=== PATIENT | female | born 2000 | race Caucasian/White ===

== ENCOUNTER 2023-06-29 09:30 | Outpatient (RCR) | payer BC, OTHER, SELFPAY ==
[2023-06-29 10:28] VITALS: BMI 46.9
[2023-06-29 10:30] VITALS: BMI 46.9
== END 2023-08-28 09:50 | disposition home or self-care (01) ==
LOC: ANHDMC 09:30
PROVIDERS: Visit Provider Obstetrics & Gynecology
DX: O24.419 Gestational diabetes mellitus in pregnancy, unspecified control (principal); Z3A.00 Weeks of gestation of pregnancy not specified; Z71.89 Other specified counseling; Z71.3 Dietary counseling and surveillance
CPT/HCPCS: 97802; G0108

== ENCOUNTER 2023-06-30 15:31 | Outpatient (CLI) | payer BC, SELFPAY ==
--- NOTE | ~2023-06-30 | US_ITS ---
EXAMINATION: US OB follow up DATE: 06/30/2023 16:50 INDICATION: growth assessment, cervical length measurement, third trimester TECHNIQUE: Real-time ultrasound of the pelvis was performed. The interpreting radiologist was not pre sent for the study. COMPARISON: None. FINDINGS: There is a single living fetus in vertex presentation. The placenta is posterior. The cervi brit length is 4.7 cm. cardiac activity and movement are noted. heart rate is 133 be ats per minute (bpm). The amniotic fluid index is subjectively normal. The following biometric data were obtained: Biparietal diameter (BPD): 8.8 cm; head circumference (HC): 31.7 cm; abdominal circumference (AC): 31 .0 cm; femur length (FL): 6.7 cm. These measurements are concordant. Estimated weight is 2549 g +/- 382 g, which correlates with the 52nd percentile when 08/06/2023 is used as estimated date of delivery. As single measurements, these parameters are each equal to the following estimated gestational ages w ith ranges of +/- 2 standard deviations: BPD: 35 weeks 4 days +/- 3 weeks 1 days. HC: 35 weeks 4 days +/- 3 weeks 0 days. AC: 34 weeks 6 days +/- 3 weeks 0 days. FL: 34 weeks 3 days +/- 3 weeks 0 days. estimated gestational age based solely on measurements from this exam is 35 weeks 1 days +/- 2 weeks 3 days. IMPRESSION: 1. Single living fetus in vertex presentation. 2. Cervical length is 4.7 cm. 3. Estimated weight is 2549 g +/- 382 g, which correlates with the 52nd percentile when 08/06/19 24 is used as estimated date of delivery. Reviewed, dictated and finalized at location F. TECHNICIAN IMPRESSION: 1. Single living fetus in vertex presentation. 2. Cervical length is 4.7 cm. 3. Estimated weight is 2549 g +/- 382 g, which correlates with the 52nd p ercentile when 08/06/2023 is used as estimated date of delivery.
== END 2023-06-30 15:32 | disposition home or self-care (01) ==
LOC: ANHIMG 15:33
PROVIDERS: Visit Provider Student in an Organized Health Care Education/Training Program
DX: O24.419 Gestational diabetes mellitus in pregnancy, unspecified control (principal); Z3A.00 Weeks of gestation of pregnancy not specified
CPT/HCPCS: 76816

== ENCOUNTER 2023-07-18 09:35 | Outpatient (CLI) | payer BC, OTHER, SELFPAY ==
[2023-07-18] VITALS (7 sets, daily range): BP systolic 93–121; BP diastolic 52–80; PULSE 84–97
[2023-07-18 10:25] LABS: Basophils Percent Auto 0.3 % (0.2-1.2); Eosinophils Absolute Auto 0.1 K/mm3 (0-0.3); Eosinophils Percent Auto 0.9 % (0-4.4); Hemoglobin 11.1 g/dL (12.0-15.0); Immature Granulocyte Absolute 0.05 K/mm3 (0.00-0.031); Immature Granulocyte Percent A 0.5 % (0-0.5); Lymphocytes Absolute Auto 1.74 K/mm3 (0.9-3.2); Lymphocytes Percent Auto 16.2 % (18.3-44.2); Mean Corpuscular HGB Conc 31.7 g/dl (32-36); Mean Corpuscular Hemoglobin 26.2 pg (26-34); Mean Corpuscular Volume 82.7 fl (80-100); Mean Platelet Volume 8.6 fl (7.4-10.4); Monocytes Absolute Auto 0.7 K/mm3 (0.1-0.6); Monocytes Percent Auto 6.1 % (2.6-8.5); Neutrophils Absolute Auto 8.2 K/mm3 (1.3-6.7); Platelet Count Result 322 k/mm3 (150-375); Red Blood Count 4.23 M/mm3 (4.2-5.4); Red Cell Distribution Width 14.6 % (11.5-14.5); White Blood Count 10.8 K/mm3 (4.5-10.0)
[2023-07-18 10:29] LABS: Appearance Urine Cloudy (Clear); Bacteria Urine 4+ /hpf; Bilirubin Urine Negative (Negative); Blood Urine Negative (Negative); Color Urine Yellow (Yellow); Glucose Urine UA Negative (Negative); Ketones Urine Negative (Negative); Leukocyte Esterase Ur 3+ LEU/UL (Negative); Nitrate Urine Negative (Negative); Non Pathogenic Casts 0-2; Protein Urine Negative (Negative); RBC Urine 0-2 /hpf (0-2); Specific Grav Ur 1.005 (1.001-1.035); Squamous Epithelial Cell Urine Occasional /hpf (Few); Urobilinogen Urine 0.2 mg/dL (<2.0); WBC Urine 21-50 /hpf; pH Urine 7.5 (5.0-9.0)
[2023-07-18 10:31] LABS: Add Urine Microscopic? YES
[2023-07-18 10:38] LABS: Alanine Aminotransferase 10 U/L (6-35); Albumin Level 3.7 g/dL (3.5-5.1); Alkaline Phosphatase 111 U/L (38-126); Anion Gap 7 mmol/L (8-16); Aspartate Amino Transferase 14 U/L (14-36); Bilirubin,Total 0.6 mg/dL (0.2-1.3); Blood Urea Nitrogen 7 mg/dL (7-17); Calcium 9.4 mg/dL (8.4-10.2); Carbon Dioxide 24 mmol/L (22-30); Chloride 105 mmol/L (98-107); Estimated Glomerular Filt Rate > 60; Glucose 84 mg/dL (65-110); Potassium 4.1 mmol/L (3.4-5.0); Sodium 136 mmol/L (137-145); Uric Acid 3.2 mg/dL (2.5-7.5)
[2023-07-18 11:13] LABS: Creatinine Urine 17.3 mg/dL; Total Protein Urine Random 18 mg/dL; Ur Ttl Prot Creatinine Ratio 1.04 mg/mg (0-0.20)
--- NOTE | 2023-07-18 11:21 | PC.NURSE ---
Dr Bradley notified of lab resutls and BP's. Ok to dc home, RX to be called by MD for potential UTI.
== END 2023-07-18 11:25 | disposition home or self-care (01) ==
LOC: ANHOBOP 09:39 → ANHOBPP 09:39
PROVIDERS: Visit Provider Student in an Organized Health Care Education/Training Program
DX: O13.9 Gestational [pregnancy-induced] hypertension without significant proteinuria, unspecified trimester (principal)
CPT/HCPCS: 36415; 59025; 80053; 81001; 82570; 84156; 84550; 85025; 87086; 99199

== ENCOUNTER 2023-07-26 09:42 | Outpatient (RCR) | payer BC, OTHER, SELFPAY ==
[2023-06-21 10:45] VITALS: BP 105/60; PULSE 90
[2023-06-29 10:58] VITALS: BP 116/63; PULSE 86
[2023-07-05 10:20] VITALS: BP 120/66; PULSE 97
[2023-07-12 12:58] VITALS: BP 122/77; PULSE 86
[2023-07-26 10:07] VITALS: BP 111/70; PULSE 90
== END 2023-09-19 23:59 | disposition home or self-care (01) ==
LOC: ANHOBOP 09:42
PROVIDERS: Visit Provider Student in an Organized Health Care Education/Training Program
DX: O24.419 Gestational diabetes mellitus in pregnancy, unspecified control (principal); Z3A.33 33 weeks gestation of pregnancy; Z3A.34 34 weeks gestation of pregnancy; Z3A.35 35 weeks gestation of pregnancy; Z3A.36 36 weeks gestation of pregnancy; Z3A.38 38 weeks gestation of pregnancy
CPT/HCPCS: 59025

== ENCOUNTER 2023-07-30 16:55 | Inpatient (IN) | payer BC, OTHER, SELFPAY ==
[2023-07-30] VITALS (11 sets, daily range): BP systolic 114–142; BP diastolic 61–83; PULSE 84–97; TEMP 36.7; BMI 46.5
--- NOTE | 2023-07-30 16:55 | LDADM ---
This patient, Patricia Bridges, was admitted to Labor/Delivery/Recovery 108 on 07/30/23 at 16:55. Plans for labor, pain management and were discussed with patient. Patient/family oriented to hospital policies and general routines including ID bracelet, bed and alarms, visiting hours, pain management, procedures, bathroom and other care routines, personal items, smoking policy, room service/diet and guest tray routines, security routines, and visiting hours. Patient/Family are encouraged to report perceived risks to care and to ask questions if they do not understand what they are told or what they should do. See OBIX for further documentation.
[2023-07-30 17:47] LABS: Glucose Point of Care 89 mg/dl (65-105)
[2023-07-30 17:54] LABS: Basophils Percent Auto 0.2 % (0.2-1.2); Eosinophils Absolute Auto 0.1 K/mm3 (0-0.3); Eosinophils Percent Auto 0.8 % (0-4.4); Hematocrit 34.8 % (37.0-47.0); Hemoglobin 10.7 g/dL (12.0-15.0); Immature Granulocyte Absolute 0.05 K/mm3 (0.00-0.031); Immature Granulocyte Percent A 0.4 % (0-0.5); Lymphocytes Absolute Auto 1.98 K/mm3 (0.9-3.2); Lymphocytes Percent Auto 15.5 % (18.3-44.2); Mean Corpuscular HGB Conc 30.7 g/dl (32-36); Mean Corpuscular Hemoglobin 25.5 pg (26-34); Mean Corpuscular Volume 83.1 fl (80-100); Mean Platelet Volume 8.7 fl (7.4-10.4); Monocytes Absolute Auto 0.7 K/mm3 (0.1-0.6); Monocytes Percent Auto 5.6 % (2.6-8.5); Neutrophils Absolute Auto 9.9 K/mm3 (1.3-6.7); Neutrophils Percent Auto 77.5 % (45.5-73.1); Platelet Count Result 300 k/mm3 (150-375); Red Blood Count 4.19 M/mm3 (4.2-5.4); Red Cell Distribution Width 14.6 % (11.5-14.5); White Blood Count 12.8 K/mm3 (4.5-10.0)
[2023-07-30] MEDS: DINOPROSTONE 10 MG VAG INSERT VAGINAL (17:56)
--- NOTE | 2023-07-30 18:28 | WPDANESEPP ---
Anes - Eval Pre Procedure Procedure: labor epidural Date/Time: 07/30/23 18:28 Pre Op Diagnosis: IOL Patient Data Age: 23 Gender: F Height: 1.65 m Weight: 127 kg Last Vital Signs Temp 36.7 C 07/30/23 17:45 Pulse 89 07/30/23 18:17 BP 122/68 07/30/23 18:17 Allergies Allergy/AdvReac Type Severity Reaction Status Date / Time No Known Allergies Allergy Verified 07/26/23 08:50 Home Medications Medication Instructions Recorded Confirmed Type aspirin 81 mg tablet,delayed 81 mg PO DAILY 03/29/23 07/26/23 History release (Adult Low Dose Aspirin) vits no.126-ferrous fum 1 tablet PO DAILY 03/29/23 07/26/23 History 28 mg iron-folic acid 800 mcg tablet (Classic ) Laboratory Tests 07/30/23 07/30/23 17:17 17:43 WBC 12.8 H K/mm3 (4.5-10.0) RBC 4.19 L M/mm3 (4.2-5.4) Hgb 10.7 L g/dL (12.0-15.0) Hct 34.8 L % (37.0-47.0) MCV 83.1 fl (80-100) MCH 25.5 L pg (26-34) MCHC 30.7 L g/dl (32-36) RDW 14.6 H % (11.5-14.5) Plt Count 300 k/mm3 (150-375) MPV 8.7 fl (7.4-10.4) Immature Gran % (Auto) 0.4 % (0-0.5) Neut % (Auto) 77.5 H % (45.5-73.1) Lymph % (Auto) 15.5 L % (18.3-44.2) [place] % (Auto) 5.6 % (2.6-8.5) Eos % (Auto) 0.8 % (0-4.4) Baso % (Auto) 0.2 % (0.2-1.2) Lymph # (Auto) 1.98 K/mm3 (0.9-3.2) [place] # (Auto) 0.7 H K/mm3 (0.1-0.6) Eos # (Auto) 0.1 K/mm3 (0-0.3) Baso # (Auto) 0.0 K/mm3 (0.0-0.1) Abs Immat Gran (auto) 0.05 H K/mm3 (0.00-0.031) Absolute Neuts (auto) 9.9 H K/mm3 (1.3-6.7) Absolute Nucleated RBC 0.0 K/mm3 (0.0-0.012) Nucleated RBC % 0.0 % (0.0-0.2) POC Capillary Glucose 89 mg/dl (65-105) RPR Pending Patient hx anesthesia problems: none Family hx anesthesia problems: none Results Review: All pre-operative results and documents have been reviewed as part of the pre-operative evaluation. [facility] Past Medical History Medical History (Updated 07/30/23 @ 18:28 by Natty Benoit CRNA) GDM (gestational diabetes mellitus), class A1 UTI (urinary tract infection) Vaginal discharge Surgical History Surgical History [place] teeth removed Family History Family History Mother Breast cancer Endometriosis Grandparent Bipolar 1 disorder Endometriosis Sibling Autism Social History Social History Smoking status: Never smoker Second hand tobacco smoke exposure: No Alcohol intake: former Substance use: never Substance use type: does not use Do You Feel Safe in your Home?: Yes Lack of Transportation: No Lack of Food: Never True Current Housing: I Have Housing Concerned About Future Housing: No Difficulty Paying Gas/Electric Bills: No Difficulty Paying for Meds: No Currently Unemployed: No Education: Bachelor's Degree Difficulty w/ Childcare or Family Care: No Living arrangements: other Additional living arrangements comments: Occupation/Education: occupation 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
[2023-07-30 21:50] LABS: Glucose Point of Care 127 mg/dl (65-105)
[2023-07-31] VITALS (167 sets, daily range): BP systolic 68–163; BP diastolic 20–112; PULSE 61–155; RESP 16–20; TEMP 36.2–36.9; O2SAT 72–100
[2023-07-31 01:06] LABS: Glucose Point of Care 99 mg/dl (65-105)
[2023-07-31 05:22] LABS: Glucose Point of Care 75 mg/dl (65-105)
[2023-07-31] MEDS: OXYTOCIN 30 UNITS/NS 500 ML 30 UNITS/500 ML BAG IV CONT (06:41)
[2023-07-31] MEDS: LACTATED RINGERS 1,000 ML 125 ML IV CONT ×2 (06:41→14:38)
--- NOTE | 2023-07-31 08:29 | WPDHPUPDATE1 ---
History and Physical Update Update Date/Time: 07/31/23 08:29 Old G1 at 39 weeks who presents for induction of labor. Patient's was complicated by gestational diabetes. Patient's blood sugars were controlled with diet and exercise. History and Physical has been reviewed, including an updated exam of the patient. There are NO changes in the patient's condition. Risks, benefits, and alternatives have been discussed and questions answered. Patient agrees to proceed with procedure. A/P Admit to L&D Routine admission orders Will plan for Cervidil induction of labor Will monitor blood sugars Throughout induction Continuous external monitoring
[2023-07-31 10:42] LABS: Rapid Plasma Reagin Non-Reactive (NonReactive)
[2023-07-31 10:42] LABS: Glucose Point of Care 128 mg/dl (65-105)
[2023-07-31 13:34] LABS: Glucose Point of Care 113 mg/dl (65-105)
[2023-07-31 18:00] LABS: Glucose Point of Care 80 mg/dl (65-105)
[2023-07-31] MEDS: OXYTOCIN 30 UNITS/NS 500 ML 30 UNITS/500 ML BAG 999 UNITS IV CONT (21:43)
--- NOTE | 2023-07-31 22:06 | PM.OBPRVD ---
OB - Vaginal Delivery Note Procedure Delivery date: 07/31/23 Events: Gestational Diabetes Induction method: Per Cervidil Protocol Delivery augmentation: Rupture of Membranes and Pitocin Delivery monitor: External FHT and External Uterine Route of delivery: Episiotomy description: None Laceration Description: Perineal - 2nd Degree Delivery repair: vicryl Specimen: No Quantitative Blood Loss (ml): 200 Anesthesia type: Epidural Disposition: Floor Complications: No immediate complications Narrative: Patient pushed for a spontaneous vaginal delivery. The fetus was delivered atraumatically and placed on the maternal abdomen. The cord was clamped and cut after 1 minute of life. The cord was double clamped and cut and a segment of cord was collected for cord gases. Cord blood was collected for blood type and Coomb's testing. The placenta delivered spontaneously and was noted to be intact. The perineum was inspected and a second degree laceration was noted. The laceration was repaired with 3-0 vicryl in the usual running fashion. The uterus was firm and good hemostasis was noted. Baby Date of : 07/31/23 Time of : 21:52 Weeks of gestation at delivery: 39 gender: Female presentation: vertex position: Right Occiput Anterior Placenta delivery description: Spontaneous Cord Vessel Description: 3 Vessels score one minute: 9 score five minutes: 9 AMG Delivery Billing Delivery Delivery: Delivery Charge
[2023-07-31] MEDS: ONDANSETRON INJ 4 MG/2 ML VIAL IV PUSH (22:16)
[2023-07-31] MEDS: OXYTOCIN 30 UNITS/NS 500 ML 30 UNITS/500 ML BAG 125 UNITS IV CONT (22:17)
[2023-07-31 22:23] LABS: Glucose Point of Care 98 mg/dl (65-105)
[2023-07-31] MEDS: miSOPROStol 200 MCG TABLET 1000 MCG RECTAL (22:51)
[2023-08-01] VITALS (8 sets, daily range): BP systolic 110–136; BP diastolic 56–83; PULSE 72–93; RESP 16–18; TEMP 36.4–37.2; O2SAT 98–99
[2023-08-01] MEDS: IBUPROFEN 600 MG TABLET PO ×3 (00:28→17:43)
--- NOTE | 2023-08-01 00:47 | OBPPTRN ---
Patient transferred to post room #279 via wheelchair. Support person present. Oriented to unit, room, information board, rooming in, admission packet and security measures. Patient verbalizes understanding.
[2023-08-01 05:05] LABS: Hematocrit 33.8 % (37.0-47.0); Hemoglobin 10.5 g/dL (12.0-15.0)
--- NOTE | 2023-08-01 08:00 | P.PNOB_ITS ---
OB - PN: Subj Subjective Date/time seen: 08/01/23 08:00 Patient comments: no complaints, pain well controlled and tolerating diet [place]s feeding status: exclusively breast feeding Narrative: patient doing well this AM. No complaints. Pain is well controlled. She reports minimal bleeding. She is ambulating and voiding without difficulty. She is tolerating PO. She denies N/V, fever, chills. OB - PN: Obj Data Labs 08/01/23 03:24 Labs: Laboratory Results - last 24 hr 07/30/23 07/31/23 07/31/23 17:17 09:08 13:02 Hgb Hct POC Capillary Glucose 128 H 113 H RPR Non-reactive 07/31/23 07/31/23 08/01/23 17:46 20:49 03:24 Hgb 10.5 L Hct 33.8 L POC Capillary Glucose 80 98 RPR OB - PN A/P Plan day: 1 Plan: routine care Comments: patient doing well H/H stable continue routine care Time Spent With Patient Time: Total time spent is greater than 50% in coordination of care (as documented) at patient's floor/unit and/or counseling patient: Time with patient: less than 15 minutes Review of Systems Review of Systems: All systems reviewed & are unremarkable except as noted in HPI and below Exam 2 Const: General: comfortable and no acute distress Resp: Effort & Inspection: normal respiratory effort Cardio: Rate: regular rate GI: GI Palp: Yes Soft to palpation and No Tenderness to palpation present (GI) Auscultation: normal bowel sounds Other: fundus firm and below umbilicus. Psych: Affect: normal affect
[2023-08-01] MEDS: DOCUSATE SODIUM 100 MG CAPSULE PO ×2 (08:23→17:44)
[2023-08-01] MEDS: MULTIVIT/MIN/PREN/FOL AC/IRON TABLET 1 TAB PO (08:23)
--- NOTE | 2023-08-01 12:09 | WPDANLDPN2 ---
Anes-Prog Note L&D Date/Time: 08/01/23 12:09 Comfortable throughout: labor and delivery Neuraxial method: epidural Epidural/Spinal procedure site: clean & non-tender Neuro status: Neuro function grossly intact. Cardiovascular status: normal Respiratory status: normal Airway patency: baseline Mental status: baseline Post-Op hydration status: normal Vital Signs: Last Vital Signs Temp 37.0 C 08/01/23 12:00 Pulse 93 08/01/23 12:00 Resp 16 08/01/23 12:00 BP 136/83 08/01/23 12:00 Pulse Ox 99 08/01/23 12:00 O2 Del Method Room Air 07/31/23 06:30 Pain score (VAS): 0/10 I/O: Intake & Output 07/31/23 08/01/23 08/01/23 23:59 07:59 15:59 Output Total 475 130 Balance -475 -130 Post-procedural complaints: none Patient feedback: Patient satisfied with anesthetic care.
--- NOTE | 2023-08-01 14:00 | PC.NURSE ---
1100 Introductions were made, then consulted with patient to assess needs related to . Mother led the conversation with her?plans to feed?her and the?experience so far. Encouraged understanding of the benefits of skin to skin (demonstrating unwrapping infant and placing upright on her chest), stimulating with massage touch, changing positions to encourage wakefulness, how to watch for early feeding cues, responsive feeding, feeding on demand (aiming for 8-12 times in 24 hours, about every 2-3 hours), milk production, building/maintaining a milk supply, duration of feeding, signs of adequate intake/output and how to record on the feeding sheet. Mother works well with her with encouragement and education. Reviewed positioning and ear, shoulder, hip alignment, supporting the breast to facilitate a deep latch, asymmetrical latch (off-center), leading with the chin with a big, open, wide gape and body close to mother. Mother states she attempted to feed infant in the football position with nipple shield as nipples are flat to the both breasts. Education given to the mother of how to visualize the suckling (with good rocking jaw motion), swallows (dropping of the lower jaw) and how to listen for drinking at the breast (the ka sound). Mother states was unable to maintain latch without nipple shield. Reviewed comfort measures of healing with a warm, wet washcloth to rinse breast, then leave open to air-dry, good handwashing when or touching the breast/nipples to prevent infection. Mother voiced understanding of skin to skin, stimulating with massage touch, responsive feedings, hand expressed colostrum, talking to infant to encourage if it has been 2 -2.5 hours since the start of the last , to call if does not latch, or if there is discomfort with . Resources used for education were facilitated with the visual educational handouts/ tool/mom and baby guide, Inpatient resources provided with business card, feeding sheet, name written on the communication board, and the mom/baby guide. Parents voiced understanding of information, demonstrated learning and will call if there is a request for assistance. Reported to the Primary RN.
--- NOTE | 2023-08-01 14:12 | PC.NURSE ---
1230 Infant attempted to beastfeed with nipple mitchell after mom pumped to encourage nipples to extend. spit up twice a small amount of thin fluid/ mucous. Parents will contact nurse for assistance with feeding after pumping. Reported to RN.
[2023-08-01] MEDS: ACETAMINOPHEN 325 MG TABLET 650 MG PO (22:00)
[2023-08-02] MEDS: ONDANSETRON HCL ODT 4 MG TABLET PO (04:30)
--- NOTE | 2023-08-02 07:11 | P.DS_ITS ---
DS: Admitting Diagnosis Discharge Date 08/02/23 Admitting Diagnosis intrauterine at term gestational diabetes DS: Discharge Diagnosis Discharge Diagnosis (1) Normal vaginal delivery: Code(s): O80 - Encounter for full-term uncomplicated delivery Status: Acute OB - DS: Summary OB Procedures : None OB Procedures Intrapartum: Spontaneous Vag Delivery OB Procedures: : None Peripartum Data Laceration Description: Perineal - 2nd Degree Episiotomy description: None Status at Discharge Functional status at discharge: independent ambulation Overall status at discharge: patient is back to baseline Time Spent with Patient Time attestation: Total time spent providing and/or coordinating discharge services: Time spent: Less than 30 minutes Exam Const: General: comfortable and no acute distress Resp: Effort & Inspection: normal respiratory effort Auscultation: clear to auscultation bilaterally Cardio: Rate: regular rate GI: GI Palp: Yes Soft to palpation Auscultation: normal bowel sounds Other: Fundus firm below umbilicus Psych: Appearance: grossly normal Mental Status: mental status grossly normal Affect: normal affect Discharge Plan Discharge Discharging Clinician: Hernando Bradley Patient Disposition: Home, Self-Care Activity: as tolerated and pelvic rest Diet: regular Patient Instructions: Antibiotic Form, Vaginal Delivery (DC) Stand Alone Forms: General Discharge Information Follow-up/Referrals: Hernando Bradley MD [Physician] - 4 Weeks Discharge Medications: New acetaminophen 500 mg tablet 500 mg PO Q6H PRN (Reason: pain) Qty: 30 0RF ibuprofen 600 mg tablet 600 mg PO Q6H PRN (Reason: pain) Qty: 30 0RF Continued Classic 28 mg iron- 800 mcg tablet 1 tablet PO DAILY Discontinued aspirin [Adult Low Dose Aspirin] 81 mg tablet,delayed release (DR/EC) 81 mg PO DAILY Date of admission: 07/30/23 16:55 Primary Care Provider: PHYSICIAN,METEOROLOGICAL OBSERVER Admitting Provider: Hernando Bradley Attending physician on admission: Hernando Bradley Condition: Stable
[2023-08-02 07:50] VITALS: BP 132/89; PULSE 91; RESP 16; TEMP 36.4; O2SAT 99
--- NOTE | 2023-08-02 10:09 | PC.NURSE ---
On 08/02/23, the student, Christine Castano, provided care and completed [facility] documentation on this patient. I have reviewed the student's documentation and agree with the findings.
[2023-08-02] MEDS: MULTIVIT/MIN/PREN/FOL AC/IRON TABLET 1 TAB PO (11:09)
[2023-08-02] MEDS: DOCUSATE SODIUM 100 MG CAPSULE PO (11:09)
[2023-08-02] MEDS: IBUPROFEN 600 MG TABLET PO (11:10)
[2023-08-02] MEDS: WITCH HAZEL 40 PADS 1 PAD TOPICAL (11:12)
[2023-08-02] MEDS: BENZOCAINE 20% AER SPR (*SP) 56 GM CAN 1 SPRAY TOPICAL (11:12)
--- NOTE | 2023-08-02 12:20 | PC.NURSE ---
Patient was given the opportunity to view the discharge video Mother & Baby Care, The First Two Weeks and to ask questions. Patient declined viewing the video and has been given the mother/baby guide for home reference.QR code scanned, pt states she will watch video at home.
--- NOTE | 2023-08-02 13:28 | PC.NURSE ---
Addendum entered by Liana Ramos RN 08/02/23 13:39: add to the [id number] note We discussed how to roll, gently stretch, and stimulate her inverted nipples, then attempt to latch . Infant is able to pull the nipple out and it stays out for quite awhile. Suggested pumping to bring the nipple out, then latch . Mother states she was able to get the to latch to the right breast independently and infant breastfed effectively with no pain to mother. No assessment was done on that feeding. Original Note: [id number] Introductions were made, then consulted with patient to assess needs related to . Discussed with mother her?plans to feed?her infant and the?experience so far. is not in the room and parents share infant is getting Valentines pictures taken, however; they are concerned that infant hasn't eaten since 3ish in the morning. Infant bottle fed and was with the RN at the desk last night. We reviewed milk production and pumping. Mother has been utilizing her personal pump with 15mm inserts. Instructions given on cleaning, care, usage, that there should be no pain, pumping schedule for milk production, collection, and storage of human milk. Patient was assessed for correct placement, flange size (17mm), to pump for comfort and nipple stretching/stimulation for adequate milk production every 3 hours (8 times in 24 hours) 1-2 times at night. Parents are encouraged to record the pumping schedule on the feeding sheet.?Mother voiced understanding of the education shared along with mom/baby guide and the pump measurement, flange fit handout for additional resource information. Resources provided for inpatient and outpatient services with the feeding sheet, mom/baby guide and name written on the communication board. Mother voiced understanding of information and will call if there is a request for assistance. 1016 - Encouraged understanding of the benefits of skin to skin (demonstrating unwrapping and placing upright on her chest), stimulating with massage touch, changing positions to encourage wakefulness, how to watch for early feeding cues, responsive feeding, feeding on demand (aiming for 8-12 times in 24 hours, about every 1-3 hours as a guideline). [id number] Purposefully rounded to assess for needs. Mother works well with her with encouragement and education. Reviewed positioning and ear, shoulder, hip alignment, supporting the breast to facilitate a deep latch, asymmetrical latch (off-center), leading with the chin with a big, open, wide gape and body close to mother. latched optimally to the left breast in football position. Education given to the mother of how to visualize the suckling (with good rocking jaw motion), swallows (dropping of the lower jaw) and how to listen for drinking at the breast (the ka sound). was able to maintain latch without pain to mother protecting the nipple with optimal positioning and latching. Infant detached and stopped sucking, then started sucking to the side of the nipple on the areola. Reminded mother to be aware of where infant is latched, the sensation of the nipple being stretched, what swallowing looks and sounds like along with sucking on the areola and not swallowing. Reviewed comfort measures of healing with a warm, wet washcloth to rinse breast, then leave open to air-dry, good handwashing when or touching the breast/nipples to prevent infection. Mother voiced understanding of skin to skin, stimulating with massage touch, responsive feedings with feeding on demand, to call if does not latch, or if there is discomfort with . Resources used for education were facilitated with the visual educational handouts/ tool/mom and baby guide. Inpatient/outpatient resources provided with feeding sheet, name written on the communication board, and the mom/baby guide. Parents voiced understanding of inform
[2023-08-03 12:59] VITALS: PULSE 98; RESP 18; TEMP 37.2; O2SAT 99
== END 2023-08-02 12:55 | disposition home or self-care (01) | DRG 807 ==
LOC: ANHLDR 17:07 → ANHOB2 08-01 01:37
PROVIDERS: Admitting Provider Student in an Organized Health Care Education/Training Program; Visit Provider Student in an Organized Health Care Education/Training Program
DX: O24.420 Gestational diabetes mellitus in childbirth, diet controlled (principal); Z37.0 Single live birth; O70.1 Second degree perineal laceration during delivery; Z3A.39 39 weeks gestation of pregnancy
CPT/HCPCS: 36415; 82948; 85014; 85018; 85025; 86592; 86850; 86900; 86901; A9270; J2405; J2590; J2795; J7120

== ENCOUNTER 2025-05-17 19:55 | Emergency (ER) | payer OTHER, SELFPAY ==
--- OUTSIDE RECORDS SUMMARY | 2025-05-17 19:57 | XMS_ITS | Clinical Summary ---
Author Organization [facility] Address [address] [place] [address] Care Team Providers Care Home Health Registered Nurse Name Role Phone Unavailable Primary Care Provider Unavailabl e Source Comments [facility],non-owned Affiliates and Associated Physician Practices is amultiple site organization consisting of ambulatory clinics and hospital sitesin [place], [place], [place] and [place]. This disclosure is being madepursuant to the Care Everywhere program and may not contain all information available regarding this patient. Last updated 18.[facility] Allergies No known active allergies Encounters Date Type Department Care Team Description 04/18/2025 2:16 PM CDT - 04/18/2025 11:59 PM CDT Hospital Encounter [facility] [address] [place] [id number] Nathan Monteiro MD Discharge Disposition: Home or Self Care from Last 3 Months Social History Tobacco Use Types Packs/Day Years Used Date Smoking Tobacco: Never Assessed Tobacco Cessation:Counseling Given: Not Answered Estimated Date of Delivery Comme nts Yes 09/02/2025 Based on last me nstrual period of 11/26/2024 Sex and Gender Information Value Date Recorded Sex Assigned at Not on file Legal Sex Female 9:23 AM CDT Gender Identity Not on file Sexual Orientation Not on file Plan of Treatment Upcoming Encounters Date Type Department Care Team (Late st Contact Info) Description 05/23/2025 10:30 AM MANAGER PRODUCT MARKETING Hospital Encounter [facility] [address] [place] [id number] Health Maintenance Due Date Last Done Comments HIV SCREENING 2013 HEPATITIS C SCREENING 02/08/2016 DTAP/TDAP/TD VACCINES (1 - Tdap) 2017 HEPATITIS B VACCINE (1 of 3 - 19+ 3-dose series) 2017 PAP SMEAR 2019 DEPRESSION SCREENING 06/19/2024 HPV VACCINE (1 - 3-dose SCDM series) 2025 COVID-19 VACCINE (1 - 2024-2 6 season) 2025 INFLUENZA VACCINE (#1) 2025 OB-ONE HOUR GLUCOSE 05/27/2025 OB-RHOGAM INJECTION 06/10/2025 Respiratory Syncytial Virus (RSV) Vaccine Pt: or over 60 yrs (1 - Risk 1-dose series) 07/08/2025 ZOSTER VACCINE (1 of 2) 02/13/2048 HIB VACCINE Aged Out No longer eligi ble based on patient's age to complete this topic MENINGOCOCCAL (Group B) VACC INE SHARED DECISION-MAKING Aged Out No longer eligibl e based on patient's age to complete this topic MENINGOCOCCAL GROUPS A/C/Y/W VACCINE Aged Out No longer eligible b ased on patient's age to complete this topic PNEUMOCOCCAL VACCINE Aged Out No long er eligible based on patient's age to complete this topic Procedures Procedure Name Priority Date/Time Associated Diagnosis Comments SONOGRAM - COMPLETE Routine 04/18/2025 2 :34 PM CDT Encounter for anatomic survey (HCC) 20 weeks gestation of (HCC) History of gestational diabetes from Last 3 Months Results * Sonogram - Complete (04/18/2025 2:34 PM CDT) Linked Results Indication ======== anatomy evaluation Obesity complicating , Class 3 - BMI of 40.0 or greater Lab Tests Test Date Result Genetic screening Declined Maternal Assessment Physical Exam Height 165 cm, 5 ft 5 in. Weight 122 kg, 269 lb. Initial weight 120 kg, 264 lb. BMI 44.76 kg/m . Initial BMI 43.93 kg/m . Weight gain 2 kg, 5 lb Method ====== Transabdominal and transvaginal ultrasound examination. View: Sufficient ========= Cortes . Number of fetuses: 1 Dating ====== Date Details Gest. age LAST LMP 11/26/2024 20 w + 3 d 09/02/2025 U/S 04/18/2025 based upon AC, BPD, Femur, HC 21 w + 1 d 08/28/2025 Assigned dating based on the LMP, selected on 04/18/2025 20 w + 3 d 09/02/2025 General Evaluation Cardiac activity present. FHR 142 bpm. Presentation: cephalic Placenta: Placental site: anterior. No previa seen Umbilical cord: Cord vessels: 3 vessel cord. Insertion site: normal insertion Amniotic fluid: Amount of AF: normal. MVP 4.5 cm Biometry BPD 50.5 mm 21w 2d 82% Hadlock HC 180.4 mm 20w 3d 43% Hadlock Cerebellum tr 19.8 mm 17% [place] Nuchal fold 3.5 mm AC 161.9 mm 21w 2d 72% Hadlock Femur 36.3 mm 21w 4d 78% Hadlock Humerus 33.7 mm 21w 3d 84% Misha HC / AC 1.11 -/- 19% Hadlock Weight Calculation: EFW 413 g 87% Hadlock EFW (lb,oz) 0 lb 15 oz EFW by Hadlock ([id number]) Head / Face / Neck Biometry: CM 4.0 mm 18% Nicolaides appropriate Growth Overview Exam date GA BPD (mm) HC (mm) AC (mm) FL (mm) HL (mm) EFW (g) 04/18/2025 20w 3d 50.5 82% 180.4 43% 161.9 72% 36.3 78% 33.7 84% 413 87% Anatomy The following structures appear normal: Head / Neck Cranium. Lateral ventricles. Choroid plexus. Midline falx. Cavum septi pellucidi. Cerebellum. Cisterna magna. Thalami. Nuchal fold. Face Lips. Nose. Orbits. Abdomen Cord insertion. Stomach. Kidneys. Bladder. Bowel. Genitals. Spine Cervical spine. Thoracic spine. Lumbar spine. Sacral spine. Extremities / Skeleton Arms. Legs. Feet. The following structures could not be adequately visualized: Face Profile. Nasal bone. Heart / Thorax 4-chamber view. RVOT view. LVOT view. 3-vessel view. 5-yyugnu-ajdrdej view. Situs. Aortic arch view. Bicaval view. Ductal arch view. Great vessels. Right lung. Left lung. Diaphragm. Extremities / Skeleton Hands. sex: male. Maternal Structures Cervix reassuring Approach - Transvaginal: Cervical length 4.59 cm Funneling absent Right Ovary Not visualized Appearance: Adnexa appears normal Left Ovary Normal Impression ========= Single live intrauterine at 20w 3d The size is appropriate. The amniotic fluid volume is normal. The transvaginal cervical length is reassuring. No major malformations were seen within the limitations of ultrasound. Comment ======== ultrasound alone cannot detect all structural, genetic, or functional , placental, or maternal abnormalities Follow-up ======== Follow up ultrasound in 4 weeks for growth and to complete anatomic survey Coding ====== Diagnoses O99.212, E66.813: Obesity complicating , Class 3 - BMI of 40.0 or greater Z36.3: Encounter for screening for malformations Procedures 49017: US Preg Uterus Detailed 38929: US Preg Uterus Transvaginal [place] PACS Anatomical Region Laterality Modality Other 04/18/2025 2:34 PM CDT Raudel Melvin MD [facility] ORDERABLES Edited Result - Final from Last 3 Months Insurance [employer]
--- OUTSIDE RECORDS SUMMARY | 2025-05-17 19:57 | XMS_ITS | Clinical Summary ---
Author Organization [facility] Address [address] [place] [address] Care Team Providers Care Gas Maker Name Role Phone None, Provider MD Primary Care Provider Unavaila ble Allergies No known active allergies Medications fluticasone propionate (FLONASE) 50 MCG/ACT nasal spray 1 spray by Nasal route daily. 33 mL 2 Active ampicillin 500 MG capsule TAKE 1 CAPSULE BY MOUTH 2X DAILY UNTIL CLEAR. REPEAT X 5-7 DAYS AT A TIME NEEDED FOR FLARES 4 Active clindamycin (CLEOCIN T) 1 % gel apply topically to the affected area twice daily 3 Active vitamin, low iron, ( VITAMIN WITH IRON) 27-0.8 MG tablet Take 1 tablet by mouth daily. Active Active Problems Problem Noted Date Diagnosed Date Viral syndrome 08/14/2019 BMI 38.0-38.9,adult 08/06/2019 Acute pharyngitis due to other specified organis ms 08/06/2019 Resolved Problems Problem Noted Date Diagnosed Date Resolved Date Mononucleosis 12/14/2016 08/06/2019 Encounter for preventive health examination 11/29/2016 02/28/2020 Immunizations Immunization Administration Dates Next Due Fluzone Adult - >Age 3 (Pref illed Syringe) 08/14/2019(Deferred: Patient Refused) Family History Medical History Relation Comments healthy Mother Relation Status Comments Father Alive Mother Alive Social History Tobacco Use Types Packs/Day Years Used Date Smoking Tobacco: Never Passive Smoke Exposure: Never Smokeless Tobacco: Never Tobacco Cessation:Counseling Given: Not Answered Alcohol Use Standard Drinks/Week Comments Not Currently 0 (1 standard drink = 0.6 oz pur e alcohol) trying to concieve PHQ-2 Answer Date Recorded Patient Health Questionnaire-2 Score 0 11/01/2023 Education Answer Date Recorded What is the highest level of school you have completed or the highest degree you have received? Bachelor's degree (e.g., BA, AB, BS) 08/06/2019 Comments No Sex and Gender Information Value Date Recorded Sex Assigned at Female 10/24/2022 4:18 PM CDT Legal Sex Female 5:37 PM CDT Gender Identity Female 10/24/2022 4:18 PM CDT Sexual Orientation Straight 10/24/2022 4: 18 PM CDT Last Filed Vital Signs Vital Sign Reading Time Taken Comments Blood Pressure 130/88 11/01/2023 1:21 PM CDT Pulse 98 11/01/2023 1:21 PM CDT Temperature 36.4 C (97.6 F) 11/01/2023 1:21 PM CDT Respiratory Rate 20 11/01/2023 1:21 PM CDT Oxygen Saturation 97% 11/01/2023 1:21 PM CDT Inhaled Oxygen Concentration - - Weight 119.3 kg (263 lb) 11/01/2023 1:21 PM CDT Height 165.1 cm (5' 5) 11/01/2023 1:21 PM CDT Body Mass Index 43.77 11/01/2023 1:21 PM CDT Plan of Treatment Health Maintenance Due Date Last Done Comments Cervical Cancer Screening Pa p Smear (Age 21 to 29) Every 3 Years 1998 Cervical Cancer Screening 1998 Hepatitis C 02/13/2016 DTaP, Tdap and Td Vaccines ( 1 - Tdap) 2017 Hepatitis B Vaccines (1 of 3 - 19+ 3-dose series) 2017 Annual Physical 03/13/2020 03/13/2019 PHQ-2 (Physician [place]) 06/19/2024 11/01/2023 HPV Vaccines (1 - 3-dose SCD M series) 2025 COVID-19 Vaccine ( - 2024-2 6 season) 2025 Influenza Adult (#1) 2025 Hepatitis A Vaccines Aged Out No long er eligible based on patient's age to complete this topic Meningococcal B Vaccine Aged Out No l onger eligible based on patient's age to complete this topic Meningococcal Vaccine Aged Out No aleksey dwain eligible based on patient's age to complete this topic Pneumococcal Vaccine: Pediat rics (0 to 5 Years) and At-Risk Patients (6 to 49 Years) Aged Out No longer eligi ble based on patient's age to complete this topic RSV Immunizations Under 20 Months Aged Out No longer eligible based on patient's age to complete this topic Insurance [facility] Advance Directives Documents on File Type Date Recorded Patient Smt Operator Expl anation Legal Documents 10/25/2022 9:45 PM MARRIAGE LICENSE Care Teams Gas Maker Relationship Specialty Start Date End Date None, Provider, MD PCP - General UNKNOWN PHYSICIAN SPECIALTY 11/01/23
--- OUTSIDE RECORDS SUMMARY | 2025-05-17 19:57 | XMS_ITS | Encounter Summary ---
Author Organization [facility] Address [address] [place] [address] Care Team Providers Care Roll Setter Name Role Phone Jelena Sutherland [facility] Primary Care Provider + None, Provider Primary Care Provider Unavaila ble Encounter Details Date Type Department Care Team (Late st Contact Info) Description 10/25/2022 [facility] [address] [place] [id number] [facility] Provider Name Change Social History Tobacco Use Types Packs/Day Years Used Date Smoking Tobacco: Never Passive Smoke Exposure: Never Smokeless Tobacco: Never Alcohol Use Standard Drinks/Week Comments Not Currently 0 (1 standard drink = 0.6 oz pur e alcohol) trying to concieve PHQ-2 Answer Date Recorded Patient Health Questionnaire-2 Score 1 07/19/2022 Education Answer Date Recorded What is the [...] Orientation Straight 10/24/2022 4: 18 PM CDT COVID-19 Exposure Response Date Recorded In the last 10 days, have yo u been in contact with someone who was confirmed or suspected to have Coronavirus/COVID-19? No / Unsure 10/25/2022 2:54 PM CDT documented as of this encounter Plan of Treatment Not on file documented as of this encounter Visit Diagnoses Not on filedocumented in this encounter Care Teams Roll Setter Relationship Specialty Start Date End Date [facility] P[facility] - General Nurse Practitioner Family 02/21/2007/21 None, Provider, PCP - General UNKNOWN PHYSICIAN SPECIALTY 11/01/23 documented as of this encounter
[2025-05-17 20:05] VITALS: BP 144/85; PULSE 130; RESP 16; TEMP 38; O2SAT 95
--- NOTE | 2025-05-17 20:11 | ED.URI ---
HPI - URI/Sore Throat General Chief Complaint: Upper Respiratory Infection Stated Complaint: Throat/Chest/Head Time Seen by Provider: 05/17/25 20:11 Source: patient Mode of arrival: ambulatory Limitations: no limitations History of Present Illness HPI Narrative: 25 years old white female, 24 weeks came to the ED with her daughter with upper respiratory viral infection like symptoms. Patient report the daughter starting getting sick 4 days ago, the patient and her started getting sick 3 days ago , all of them were in vacation came back home 2 days ago. The patient complaining of nasal and postnasal discharge, earaches, headache, sore throat, body aches. Related Data Home Medications ?Medication ?Instructions ?Recorded ?Confirmed ?Last Taken ?Type ascorbic acid (vitamin C) 125 mg mg PO 12/02/24 05/07/25 Unknown History capsule (Alive Vitamin C) docosahexaenoic acid 200 mg mg PO 12/02/24 05/07/25 Unknown History capsule ( DHA) doxylamine succinate 25 mg tablet 25 mg PO QHS PRN 01/15/25 05/07/25 Unknown History (Unisom (doxylamine)) pyridoxine (vitamin B6) 25 mg 25 mg PO DAILY 01/15/25 05/07/25 Unknown History tablet ampicillin 500 mg capsule 500 mg PO 04/07/25 05/07/25 Unknown History clindamycin phosphate 1 % topical topical 04/07/25 05/07/25 Unknown History solution Allergies Allergy/AdvReac Type Severity Reaction Status Date / Time No Known Allergies Allergy Verified 05/17/25 20:15 Review of Systems Review of Systems: All systems reviewed & are unremarkable except as noted in HPI and below PMFSH Past Medical History Medical History Ganglion cyst of volar aspect of left wrist GDM (gestational diabetes mellitus), class A1 UTI (urinary tract infection) Vaginal discharge Surgical History Surgical History [place] teeth removed Family History Family History Mother Breast cancer Endometriosis Grandparent Bipolar 1 disorder Endometriosis Sibling Autism Social History Social History Smoking status: Never smoker Second hand tobacco smoke exposure: No Alcohol intake: never Substance use: never Substance use type: does not use Lack of Transportation: No Lack of Food: Never True Current Housing: I Have Housing Concerned About Future Housing: No Difficulty Paying Gas/Electric Bills: No Difficulty Paying for Meds: No Currently Unemployed: No Education: Bachelor's Degree Difficulty w/ Childcare or Family Care: No Living arrangements: with family Additional living arrangements comments: Occupation/Education: occupation 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 Gender identity (if verbalized by the patient): Female Sexual Orientation (if Verbalized by the Patient): Straight or Heterosexual Spiritual care concerns: No Exam Narrative: General appearance: Well-developed, well-nourished Skin: Normal color Head: Normocephalic, nontraumatic Eyes: Clear conjunctiva ENT: Oropharyngeal erythema, ear exam within normal limit, nasal congestion, raspy voice Neck: Supple, nontender Chest and respiratory: Airway patent, no respiratory distress, no accessory muscle use Heart: Regular rate/rhythm Abdomen: Soft, nontender, no organomegaly, quiet bowel sounds Vascular: Normal peripheral pulses, normal capillary refill. Musculoskeletal: Normal range of motion, nontender back Neurologic: Alert and oriented ?3, LOCOMOTIVE CRANE OPERATOR is normal as tested, no gross motor deficit Course Vital Signs Vital signs: Vital Signs Oxygen Delivery Room Air 05/17/25 20:00 Temperature 38.0 C H 05/17/25 20:05 Pulse Rate 130 H 05/17/25 20:05 Respiratory Rate 16 05/17/25 20:05 Blood Pressure 144/85 H 05/17/25 20:05 Pulse Oximetry 95 05/17/25 20:05 Oxygen Delivery Room Air 05/17/25 20:05 MDM - URI/Sore Throat MDM Narrative Medical decision making narrative: Patient presents with upper respiratory viral infection like symptoms Vital signs showing blood pressure 144/85, heart rate 130, temperature 38.0? Physical examination showing that the patient having raspy voice, kamila pharyngeal erythema. Patient tested positive for influenza A. Patient's symptoms started 3 days ago. The pt was discharged to home.the pt,s condition upon discharge was fair,education was provided to the pt in reference to the final impression,discharge study results,treatment,prognosis and need for follow up . Lab Data Labs: Lab Results 05/17/25 Range/Units 20:19 Influenza A (RT-PCR) Positive A (Negative) Influenza B (RT-PCR) Negative (Negative) RSV (RT-PCR) Negative (Negative) SARS-CoV-2 RNA (RT-PCR) Negative (Negative) Group A Strep (PCR) Not detected (Negative) Discharge Plan Discharge Clinical Impression: Influenza A Patient Disposition: Home Condition: Stable Instructions: Influenza (ED) Additional Instructions: Return if symptoms are worsening , call your family physician for appointment, take Tylenol as as needed for aches and pain, continue home medications. Encourage fluid intake, keep head elevated during sleep, rest Patient Language: Slovak Prescriptions: New Afrin (oxymetazoline) 0.05 % mist 2 spray intranasal Q12H PRN (Reason: nasal congestion) 3 Days Qty: 15 0RF No Action Unisom (doxylamine) 25 mg tablet 25 mg PO QHS PRN pyridoxine (vitamin B6) 25 mg tablet 25 mg PO DAILY DHA 200 mg capsule PO Alive Vitamin C 125 mg capsule PO metoclopramide HCl [Reglan] 10 mg tablet 10 mg PO Q6H PRN (Reason: nausea and vomiting) Qty: 30 2RF ampicillin 500 mg capsule 500 mg PO clindamycin phosphate 1 % solution topical Follow-up/Referrals: UNKNOWN,DOCTOR [Non-Staff]
--- NOTE | 2025-05-17 20:24 | PC.NURSE ---
covid swab sent to lab
--- OUTSIDE RECORDS SUMMARY | 2025-05-17 20:27 | XMS_ITS | Encounter Summary ---
Author Organization [facility] Address [address] [place] [id number] Care Team Providers Care Psychiatric Technician Name Role Phone Jelena Sutherland [facility] Primary Care Provider + None, Provider Primary Care Provider Unavaila ble Encounter Details Date Type Department Care Team (Late st Contact Info) Description 10/25/2022 [facility] [address] [place] [id number] [employer] Provider Name Change Social History Tobacco Use [...] on filedocumented in this encounter Care Teams Psychiatric Technician Relationship Specialty Start Date End Date [facility] PCP - General Nurse Practitioner Family 02/21/2007/21 None, Provider, PCP - General UNKNOWN PHYSICIAN SPECIALTY 11/01/23 documented as of this encounter
--- OUTSIDE RECORDS SUMMARY | 2025-05-17 20:27 | XMS_ITS | Clinical Summary ---
Author Organization [facility] Address [address] [place] [id number] Care Team Providers Care Tray Drier Operator Name Role Phone None, Provider MD Primary [...] 2017 Annual Physical 03/13/2020 03/13/2019 PHQ-2 (Physician [facility]) 06/19/2024 11/01/2023 HPV Vaccines (1 - 3-dose [...] patient's age to complete this topic Insurance [facility] Advance Directives Documents on File Type Date Recorded Patient Information Systems Technician Expl anation Legal Documents 10/25/2022 9:45 PM MARRIAGE LICENSE Care Teams Tray Drier Operator Relationship Specialty Start Date End Date None, Provider, MD PCP - General UNKNOWN PHYSICIAN SPECIALTY 11/01/23
--- NOTE | 2025-05-17 20:36 | PC.NURSE ---
Pt offerded HIV testing per protocol. Pt refused and signed form
[2025-05-17] MEDS: IBUPROFEN 600 MG TABLET PO (20:44)
[2025-05-17] MEDS: ACETAMINOPHEN 500 MG TABLET 1000 MG PO (20:45)
[2025-05-17 21:15] LABS: Strep Group A RT-PCR NOT DETECTED (Negative)
[2025-05-17 21:23] LABS: Influenza A QL RT-PCR Positive (Negative); Influenza B QL RT-PCR Negative (Negative); RSV RNA, RT-PCR Negative (Negative); SARS-CoV-2 RNA PCR Negative (Negative)
[2025-05-17 21:55] VITALS: BP 136/80; PULSE 75; RESP 20; TEMP 37.2; O2SAT 99
== END 2025-05-17 21:55 | disposition home or self-care (01) ==
PROVIDERS: Emergency Provider Emergency Medicine; Referring Provider Internal Medicine
DX: O26.892 Other specified pregnancy related conditions, second trimester (principal); J10.1 Influenza due to other identified influenza virus with other respiratory manifestations; Z20.822 Contact with and (suspected) exposure to COVID-19; Z3A.24 24 weeks gestation of pregnancy
CPT/HCPCS: 87637; 87651; 99283; A9270